=== PATIENT | male | born 1995 | race American Indian/Alaskan Native ===

== ENCOUNTER 2017-11-06 08:59 | Emergency (ER) | payer OTHER ==
[2017-11-06 09:08] VITALS: BP 125/71
--- NOTE | 2017-11-06 10:05 | Emergency Department Report ---
Upper Extremity - [facility] Chief Complaint: Extremity Injury, Upper Stated Complaint: RIGHT HAND DISLOCATED Time Seen by Provider: 11/06/17 09:37 Upper Extremity: Right Hand (lump and deformity after injury) Occurred When: >5 Days (1 week) Mechanism: Other (reports lifting a heavy object) Severity: moderate (6/10 and a can) Symptoms: Yes Pain with Movement (right hand), Yes Deformity (right hand), No Limited Range of Movement, No Numbness, No Weakness, No Swelling, No Bruising/ Ecchymosis, No Laceration or Abrasion Other History: This is a 21-year-old male who reports that after heavy lifting about a week ago he developed pain to his right hand when a not to the back of his right hand. Denies any redness or open wounds. Denies any fever or chills. Denies any numbness or tingling or radiation of pain proximally. ED Review of Systems ROS: Stated complaint: RIGHT HAND DISLOCATED Other details as noted in HPI Constitutional: denies: chills, fever Respiratory: denies: cough, shortness of breath, SOB with exertion, SOB at rest , stridor, wheezing Cardiovascular: denies: chest pain, palpitations, edema, syncope Endocrine: no symptoms reported Gastrointestinal: denies: abdominal pain, nausea, vomiting Genitourinary: denies: urgency, dysuria Musculoskeletal: joint swelling, arthralgia. denies: back pain, myalgia Skin: denies: rash, lesions Neurological: denies: numbness, paresthesias ED Past Medical Hx - Past Medical History Previous Medical History?: Yes Additional medical history: Spinal cord injury as a child - Surgical History Past Surgical History?: No - Family History Family history: hypertension - Social History Smoking Status: Never Smoker Substance Use Type: None - Medications Home Medications: Home Medications Medication Instructions Recorded Confirmed Last Taken Type Ibuprofen [Motrin] 600 mg PO Q8H PRN #12 tablet 11/06/17 Unknown Rx Upper Extremity Exam - Exam General: Vital signs noted. No distress. Alert and acting appropriately. Head and Torso: No HEENT Abnormality, No Neck Tenderness, No Chest/Lungs Abnormality, No Abdominal Tenderness, No Back Tenderness Shoulder Exam: Yes Normal Range of Motion in Shoulder, No Shoulder Tenderness, No Clavicle Tenderness, No Shoulder Deformity, No AC Joint Tenderness Arm Exam: No Arm/Humerus Tenderness, No Arm Deformity Elbow: Yes Normal Range of Motion in Elbow, No Elbow Tenderness, No Elbow Deformity Forearm: No Forearm Tenderness, No Forearm Deformity, No Pain with Pronation, No Pain with Supination Wrist: Yes Normal ROM in Wrist Hand: Yes Hand Tenderness (dorsal aspect of left hand with time size bony abnormality distal carpal bone area), Yes Normal ROM in Digit(s), No Hand Deformity, No Digit Tenderness, No Digit(s) Deformity, No Tendon Dysfunction CMS Exam: Yes Normal Distal Pulses (+2 radial and ulnar pulses bilaterally), Yes Normal Capillary Refill, Yes Normal Distal Sensation, No Broken Skin ED Course Vital Signs 11/06/17 09:05 Temperature 98.3 F Pulse Rate 71 Respiratory 16 Rate Blood Pressure 125/71 O2 Sat by Pulse 98 Oximetry - Reevaluation(s) Reevaluation #1: 11/06/17 10:49 Patient given Motrin 600 mg by mouth and emergency room relief of pain. ED Medical Decision Making - Radiology Data Radiology results: report reviewed X-ray right hand dictated by radiologist and report reviewed by myself. See report below. Patient: JAZMIN KEBEDE MR#: [id number] : 1995 Acct:[id number] Age/Sex: 21 / M ADM Date: 11/06/17 Loc: ED Attending Dr: Ordering Physician: PADMINI CAT Date of Service: 11/06/17 Procedure(s): XR hand 3+V RT Accession Number(s): [id number] cc: PADMINI CAT Fluoro Time In Minutes: RIGHT HAND, 3 views: History: Right hand injury, pain, deformity. The bony architecture is intact. Bony alignment is normal. No soft tissue abnormalities are seen. The joint spaces appear preserved. IMPRESSION: Normal right hand. Transcribed By: TTR Dictated By: PRATIMA JOHNSTON JR, MD Electronically Authenticated By: PRATIMA JOHNSTON JR, MD Signed Date/Time: 11/06/17 1018 DD/ 1018 TD/TT: 11/06/17 1018 - Medical Decision Making This is a 21-year-old male here reports that he has right hand pain after lifting heavy object last week. He is to be evaluated She was seen and evaluated by myself and found to have what appears to be bony area which is nontender to dorsal aspect of right hand carpal bone area. No erythema or fluctuance. X-ray reports reveal normal right hand x-ray. Physical exam is normal with normal pulses. I discuss with patient his diagnosis and treatment plan and he voiced understanding. A/P Arthralgia right hand-x-ray normal findings. Patient will be referred to orthopedic doctor and primary care. He is given Motrin 600 mg in the emergency room and will be discharged home in Motrin. Condition discharged home in stable condition. Vital signs are stable he is afebrile. Pain is controlled and is to follow-up with orthopedic doctor in 3-5 days and for his primary care doctor. He voiced understanding. Discharged home a prescription for Motrin - Differential Diagnosis FX, strain, sprain, MSK pain Critical care attestation.: If time is entered above; I have spent that time in minutes in the direct care of this critically ill patient, excluding procedure time. ED Disposition Clinical Impression: Arthralgia of hand, right Disposition: DC-01 TO HOME OR SELFCARE Is pt being admited?: No Does the pt Need Aspirin: No Condition: Stable Instructions: Arthralgia (ED) Additional Instructions: Follow-up with orthopedic doctor in 3-5 days F/U with primary care physician and 2-3 days and if he do not have a primary care physician follow up at [facility] Referrals: STACIE CESPEDES MD [Primary Care Provider] - 2-3 Days [facility] [Outside] - 2-3 Days TASH MEDEROS MD [Staff Physician] - 3-5 Days Forms: Work/School Release Form(ED), Accompanied Note
[2017-11-06] MEDS ORDERED: MOTRIN PO ONE ×2 (10:17→10:18)
--- NOTE | 2017-11-06 10:25 | XRay Report ---
RIGHT HAND, 3 views: History: Right hand injury, pain, deformity. The bony architecture is intact. Bony alignment is normal. No soft tissue abnormalities are seen. The joint spaces appear preserved. IMPRESSION: Normal right hand.
== END 2017-11-06 11:04 | disposition home or self-care (01) ==
LOC: ED 08:59
DX: M79.641 Pain in right hand (principal); R22.31 Localized swelling, mass and lump, right upper limb
CPT/HCPCS: 99283